=== PATIENT | female | born 1995 | race Caucasian/White ===

== ENCOUNTER → 2023-12-05 | Outpatient (CLI) | payer SELFPAY ==
--- NOTE | 2023-12-05 09:51 | NM_ITS ---
CLINICAL: 28-year-old female with history of right upper quadrant abdominal pain. RADIONUCLIDE HEPATOBILIARY SCINTIGRAPHY COMPARISON: None available FINDINGS: Following the intravenous administration of 5.7 mCi of 99m Tc Mebrofenin, hepatobiliary images reveal: 1. Relatively prompt and homogeneous radiopharmaceutical concentration is noted by a normal sized liver. No parenchymal defects are identified. 2. Gallbladder activity is identified at 15 minutes post radiopharmaceutical administration. 3. Small intestinal tract is observed at 45 minutes following tracer injection. 4. Washout of the radiopharmaceutical by the hepatic parenchyma appears qualitatively normal. NM/Hepatobilliary Imaging IMPRESSION: 1. NORMAL 99m Tc Mebrofenin hepatobiliary imaging examination. A. Visualization of the gallbladder within 60 minutes post radiopharmaceutical administration excludes acute cholecystitis with 97% certitude. (Shawna et al, Nucl Med Ella [facility]a Press pg. 35, 1980). B. Further evaluation of this individual may be undertaken utilizing CCK augmented hepatobiliary scintigraphy if clinically appropriate. (Judi Brock et al, J Nucl Med 32: 1695, 1990). Electronically Signed: Pierre Jung DO at 23:28 EDT ,
== END | disposition home or self-care (01) ==
LOC: NM 09:47
PROVIDERS: PCP Nurse Practitioner Family; Referring Provider Nurse Practitioner Family; Visit Provider Nurse Practitioner Family
DX: R10.11 Right upper quadrant pain (principal)
CPT/HCPCS: 78226; A9537

== ENCOUNTER → 2024-01-11 | Outpatient (CLI) | payer SELFPAY ==
[2024-01-11 10:31] LABS: Absolute Lymphocyte Count 1.54 X10^3/uL (0.83-4.51); Basophil# 0.05 X10^3/uL; Basophil% 0.9 % (0-1); Eosinophils% 3.8 % (0-5); Hematocrit 41.6 % (37-47); Lymphocyte # 1.54 X10^3/ul (0.83-4.51); Lymphocyte % 29.2 % (19-41); Mean Corp Hgb Conc 33.7 g/dL (32-36); Mean Corpuscular Hgb 29.9 pg (27.0-32.0); Mean Corpuscular Volume 88.7 fL (81-99); Mean Platelet Vol. 9.3 fl (6.2-12.0); Monocyte# 0.51 X10^3/uL; Monocyte% 9.7 % (0-10); NRBC Flagged by Analyzer 0 % (0-5); Neutrophil # 2.96 X10^3/uL (2.7-7.7); Platelet Count 277 K/mm3 (150-450); RBC Distribution Width CV 12.2 % (11.6-14.6); RBC Distribution Width SD 39.2 fl (35.1-43.9); Red Blood Count 4.69 M/mm3 (4.2-5.4); White Blood Count 5.3 K/mm3 (4.4-11.0)
[2024-01-11 10:49] LABS: AST(SGOT) 19 U/L (15-37); Alanine Aminotransfer ALT/SGPT 21 U/L (13-56); Albumin, Serum 3.9 g/dL (3.2-5.0); Alkaline Phosphatase 38 U/L (45-117); Anion Gap 3 (5-15); BUN 12 mg/dL (7-18); Calcium,Total 9.3 mg/dL (8.5-10.1); Chloride 107 mmol/L (98-107); EST Glomerular Filtration Rate 70 mL/min (>60); Est Glom Filt Rate - Afr Amer 85 mL/min (>60); Glucose 97 mg/dL (74-106); Potassium 3.9 mmol/L (3.5-5.1); Protein, Total 7.9 g/dL (6.4-8.2); Sodium Level 138 mmol/L (136-145)
== END | disposition home or self-care (01) ==
LOC: PAVLAB 10:17
PROVIDERS: PCP Nurse Practitioner Family; Referring Provider Surgery; Visit Provider Surgery
DX: K82.9 Disease of gallbladder, unspecified (principal)
CPT/HCPCS: 36415; 80053; 85025

== ENCOUNTER → 2024-01-16 | Outpatient (CLI) | payer SELFPAY ==
--- NOTE | 2024-01-16 07:26 | US_ITS ---
EXAM: US ABDOMEN LIMITED, RIGHT UPPER QUADRANT CLINICAL INDICATION: Recurrent right upper quadrant pain TECHNIQUE: Real-time ultrasound of the right upper quadrant with image documentation. COMPARISON: No relevant prior studies available. FINDINGS: LIVER: Normal. There is normal echotexture. No focal hepatic lesion. No intrahepatic biliary ductal dilation. GALLBLADDER: Small stones are present within the gallbladder. No gallbladder wall thickening is demonstrated. No pericholecystic fluid. Negative sonographic Uribe''s sign. COMMON BILE DUCT: Common bile duct measures 4.3 mm in maximum diameter. PANCREAS: Unremarkable as visualized. No focal abnormality is demonstrated in the pancreas. No pancreatic ductal dilatation. RIGHT KIDNEY: Normal. There is no hydronephrosis. No shadowing calculus. No focal lesion or perinephric collection is demonstrated. US/Abdomen Limited IMPRESSION: Cholelithiasis. Electronically Signed: Eric Hanks MD at 8:47 EDT ,
== END | disposition home or self-care (01) ==
LOC: US 07:24
PROVIDERS: PCP Nurse Practitioner Family; Referring Provider Surgery; Visit Provider Surgery
DX: K82.9 Disease of gallbladder, unspecified (principal)
CPT/HCPCS: 76705

== ENCOUNTER 2024-01-31 09:01 | Day surgery (SDC) | payer SELFPAY ==
[2024-01-31] VITALS (11 sets, daily range): BP systolic 106–126; BP diastolic 49–80; PULSE 77–101; RESP 16; TEMP 36.1–37.1; O2SAT 100; BMI 25.0
--- NOTE | 2024-01-31 09:06 | EKG12_ITS ---
Test Reason : pre-op Blood Pressure : / mmHG Vent. Rate : 080 BPM Atrial Rate : 080 BPM P-R Int : 136 ms QRS Dur : 088 ms QT Int : 362 ms P-R-T Axes : 056 073 033 degrees QTc Int : 417 ms Normal sinus rhythm with sinus arrhythmia Normal ECG No previous ECGs available Confirmed by JAKY BROOKS, ANKUR ([id number]), graphics editor MARTA TIJERINA ([id number]) on 01/31/2024 2:16:50 PM Referred By: Tj Parikh Confirmed By:ANKUR STARKEY MD
[2024-01-31] MEDS: Bupiv/Epi 0.25% 30 ML Vial (09:10)
[2024-01-31 09:20] LABS: Internal QC Validated? YES +Cl - CLEAR BKGD; Pregnancy, Urine Negative Negative
--- NOTE | 2024-01-31 09:30 | RAD_ITS ---
STUDY: INTRAOPERATIVE CHOLANGIOGRAM. REASON FOR EXAM: Female, 28 years old. PAIN, LAP RUDY WITH IOC FLUOROSCOPY TIME (if supplied): ( 28.4 seconds ) minutes/seconds. 6.25 mGy. TECHNIQUE: An intraoperative cholangiogram was performed by the surgeon. Imaging was submitted. COMPARISON: None. FINDINGS: The common bile duct is not dilated. No intraluminal filling defect is seen. There is free flow of contrast into the duodenum. The intrahepatic biliary ducts are unremarkable. RAD/Cholangiogram/ O R,Initial IMPRESSION: Unremarkable intraoperative cholangiogram. Electronically Signed: Carl Taylor MD at 15:03 EDT ,
[2024-01-31] MEDS: Lactated Ringers 1,000 ML 15 ML IV ×2 (09:35→16:51)
--- NOTE | 2024-01-31 10:20 | PCM.HP.BLA ---
History and Physical Date of Admission: 01/31/24 Date of Service: 01/11/24 MR#: [id number] Acct: [id number] Name: DAVID BAUMANN Rep #: [id number] : 1995 Provider: Dr. Tj Parikh MD Age/Sex: 28/F Location: [facility] Status: Signed Intake Vital Signs 01/10/2409:42 Height 5 ft 6 in Weight: 147 lb 4 oz BMI 23.8 BP 102/53 L Blood Pressure Location Rt brachial Position Sitting Respiration 18 Pulse 80 Pulse Source Monitor Temp 97.2 F L Temp Source Temporal Pulse Oximetry (%) 99 Oxygen Delivery Method room air Intake Visit Reasons: CHOLECYSITIS Chief Complaint: cholecystitis Is patient in pain?: No Allergies No Known Allergies Allergy (Unverified 01/11/24 09:43) Medications ?Medication ?Instructions ?Recorded ?Confirmed ?Type semaglutide (weight loss) 1 mg/0.5 1 mg subcut Q7D 01/11/24 01/11/24 History mL subcutaneous pen injector PFSH Surgical History (Updated 01/11/24 @ 09:41 by Dannielle Bhat LPN) H/O section Social History (Updated 01/11/24 @ 09:42 by Dannielle Bhat LPN) Smoking Status: Never smoker alcohol intake: never substance use type: does not use HPI HPI HPI: Patient is a 28-year-old female who presents for gallbladder related pain. They are referred for surgical consultation from Dr. Ramsay. Patient shares that her gallbladder troubles began with her with her son in 2019. She notes that during these gallbladder attack she would have upper abdominal pain that radiated to her back along with nausea. She describes these attacks as persisting to this day but less frequently. The attacks seem to occur first thing in the morning or late at night. Initially they were strictly associated with postprandial onset but now they seem to be occurring in [place]. She notes some associated belching and bloating, but confesses that reflux is common in her family and wonders if this is more responsible for these latter symptoms. She herself denies symptoms of reflux or heartburn presently. Patient is reasonably healthy with only diagnosis of a herniated lumbar disc. She confirms her only medication is semaglutide which she started in the last few weeks to control her appetite. She denies any increased nausea with this medication. She has experienced approximately 5 pound weight loss since starting this medication. Previous work-up has included: Right upper quadrant ultrasound performed in 2020 and more recently a HIDA scan performed 12/05/2023 that was normal. ROS General General: No weight change, appetite, fatigue, colon cancer, breast cancer or weakness HEENT HEENT: No difficulty swallowing, eye injury, eye surgery, swollen glands or hoarseness Endo Endocrine: No thyroid disease, diabetes mellitus, thyroid cancer, Hair loss, heat intolerance or cold intolerance Skin Skin: No rash or changing moles Breast Breast: No left breast lump, right breast lump, nipple discharge, breast pain, abnormal mammogram, abnormal US or breast enlargement Musc Musculoskeletal: Yes back problems; No arthritis, rheumatoid arthritis, gout or joint pain Cardio Cardiovascular: No murmur, pacemaker, heart disease, atrial fibrillation, high blood pressure, heart attack, heart stent, palpitations, shortness of breat with exertion or chest pain Psych Psychiatric: No depression, anxiety or hearing voices Resp Respiratory: No shortness of breath, No sleep apnea, No cough, No COPD, No asthma, No emphysema and No wheezing Gastro Gastrointestinal: No abdominal pain, No nausea or vomiting, No diarrhea, No constipation, No blood in stool, No acid reflux, No hemorrhoids, No ulcers, Yes gallbladder problem and No black,tarry stools Dickson Hematologic: No blood thinners, No blood disorders, No bleeding, No anemia and No blood clots Neuro Neurologic: No numbness, No tingling and No weakness Exam Const General: cooperative, healthy appearing and comfortable Orientation: alert, awake and oriented x3 Resp Effort & Inspection: normal respiratory effort GI Other: Mild abdominal striae present in lower abdominal wall, normal habitus, no visible herniation, nondistended, soft, mild tenderness to palpation of the right upper quadrant and epigastric areas. Negative Uribe sign. Assessment and Plan Assessment and Plan (1) Symptomatic cholelithiasis: Status: Chronic Comment: Patient is a 28-year-old female who presents for consideration of cholecystectomy related to a diagnosis of symptomatic cholelithiasis. Her cholelithiasis was first identified during her in 2019 and she reports ongoing gallbladder attacks that have occurred with a regular frequency. Although there are some parts of her description that are atypical for gallbladder?related symptoms (specifically including details such as belching or bloating), her overall descriptions are suggestive of a gallbladder source. Further, her exam is more consistent with a gallbladder source than upper GI source. Still, I have cautioned patient that it is certainly possible her symptoms derived from multiple sources and that a cholecystectomy may not be fully curative. Patient was initially sent out of concern for possible cholecystitis but this does not appear to be patient's diagnosis based on her exam and negative HIDA imaging. Upon patient's declaration that she still wishes to proceed with surgery if recommended, I added that I would like to see her undergo updated laboratory and ultrasound testing. She is in agreement and we will tentatively plan for surgery in early January. She is advised of the postoperative wound care expectations and activity restrictions. Plan: ? Update CMP, CBC, and right upper quadrant ultrasound ? Plan for outpatient laparoscopic cholecystectomy with intraoperative cholangiography early January 2024 I have examined the patient and the H&P has been reviewed. There are no clinical changes since date of exam. I did review with patient that both her ultrasound and laboratories came back reassuring for only finding of cholelithiasis and no evidence of biliary tract obstruction. I reviewed with her the details of the procedure as well as postprocedure expectations. All questions were taken from her and her spouse. Consents were confirmed and will now proceed to the operating room for planned procedure was discussed in greater detail above.
--- NOTE | 2024-01-31 10:30 | GALL_PTH ---
PATIENT: DAVID BAUMANN [place] [facility] [place][id number] AGE/SX: 28/F ROOM: RE01/31/[address]: Dr. Tj Parikh MD : 1995 BED: DIS: 01/31/2024 SPEC #: [id number] RECD: 01/31/24 14:17 STATUS: RAISSA MYNOR #: [id number] TURNER: 01/31/24 10:[address]: Tj Parikh DEPT: SURGICAL PATHOLOGY RECD BY: Martha Briscoe ENTERED: 02/01/24 10:55 SP TYPE: GREG AGARWAL DR: Bianca Grier, STRATIGRAPHER-C Tissues: Gallbladder, NOS Procedures: Surgery Specimen Level III HEADER OPERATION: Laparoscopic, cholecystectomy with IOC PRE-OP DIAGNOSIS: Symptomatic cholelithiasis TISSUE SUBMITTED: Gallbladder MICROSCOPIC DIAGNOSIS Gallbladder, cholecystectomy: Cholesterolosis, chronic cholecystitis and cholelithiasis. NICOLASA/ 02/02/2024 MICROSCOPIC DESCRIPTION Slides are reviewed. GROSS DESCRIPTION Received is one container labeled with the patient's name and designated gallbladder. The specimen consists of a gallbladder measuring 5.0 cm in length and up to 2.5 cm in diameter. The external surface is pink-scott, smooth and glistening for the most part. Focally it is granular, hemorrhagic and contains cautery artifact. The gallbladder contains green-yellow mucoid bile and two greenish-yellow mulberry stones measuring in aggregate 0.5 cm in greatest dimension. The mucosa is bile-stained and without any mass lesions. The gallbladder wall measures up to 0.2 cm in thickness. A section of the gallbladder wall also reveals a scott-yellow cystic area filled with yellowish-brown material measuring 0.6cm in greatest dimension. Ems Coordinator sections from the gallbladder and the cystic duct are submitted in two cassettes. 1- Usual section for gallbladder, 2- Cystic area at the fundus, entirely submitted. / SJ: 02/01/2024 TC:3 CPT: 45544
[2024-01-31] MEDS: Cefazolin 2 GM in 0.9% Normal Saline (100mL Bag) 100 ML IV (10:33)
--- NOTE | 2024-01-31 11:50 | PCM.OPRPT ---
Report of Operation Date of Procedure: 01/31/24 Pre-Operative Diagnosis: Symptomatic cholelithiasis Post-Operative Diagnosis: Symptomatic cholelithiasis with evidence of mild chronic cholecystitis Surgery/Procedure Performed:: Laparoscopic cholecystectomy with intraoperative cholangiogram Description of Surgical Findings:: ? Mineral visceral fat allowing for identification of the common bile duct and right hepatic artery in addition to the typical anatomy including the cystic duct and cystic artery ? Cholangiogram showing antegrade filling of the cystic duct and common bile duct through the ampulla Vater without evidence of filling defect Surgeon: Tj Parikh superintendent production: Misha Jacob Type of Anesthesia: General/Supplemental Anesthesiologist: Charles Meza Specimen's removed: Gallbladder Estimated Blood Loss (mL): 5 Description of Procedure: After proper identification in the preoperative holding area the patient was brought to the operating room where she was positioned supine on the operating room table. Preoperatively SCDs were placed and antibiotics were administered. General anesthesia was then induced. Patient's abdomen was prepped and draped in usual sterile fashion. A formal timeout was conducted to confirm both patient and the procedure. Procedure was begun with a supraumbilical incision which was extended deeply down to the level of the fascia. The fascia was elevated and incised, as well as the peritoneum. A finger sweep was performed to ensure there were no underlying adhesions and a 12 mm balloon trocar was inserted. Pneumoperitoneum was established at 15 mmHg. Three additional trocars (all 5 mm) were placed in the epigastrium and in the right upper quadrant. Inspection of the peritoneum revealed no inadvertent injury to the viscera below. The gallbladder was visualized with a degree of mild chronic inflammation. The gallbladder fundus was then grasped and elevated cephalad. Then, using careful dissection the peritoneum was opened and the structures of the hepatocystic triangle were delineated. Additionally, likely given the minimal amount of visceral peritoneal fat I was able to visualize the confluence of the cystic duct with the common hepatic duct forming a common bile duct and the takeoff of the cystic artery from the right hepatic artery. Once the critical view of safety was obtained, the cystic duct was singly clipped and partially divided with a ductotomy. The proximal duct was milked of any debris until there was backflow of bile. Using an Romero Chantale clamp, a cholangiocatheter was fed into the proximal segment of the cystic duct and clamped into place. Under fluoroscopy a cholangiogram was then obtained showing a standard length cystic duct flowing into a common bile duct with unobstructed antegrade flow of contrast into the duodenum. There was also retrograde flow through the common hepatic duct into the right and left hepatic ducts. Satisfied with this result, the cholangiocatheter was withdrawn and the proximal cystic duct was sealed with clips and the cystic duct was completely transected. The same process was used for the cystic artery. The gallbladder was then removed from the gallbladder fossa with the use of electrocautery. Selective electrocautery was used to obtain hemostasis in the gallbladder fossa. The gallbladder was placed in an Endo Catch bag and removed from the peritoneum. Morison's pouch was irrigated and the effluent was suctioned free of the peritoneum. Hemostasis was again confirmed. Pneumoperitoneum was evacuated and the fascia of the 12 mm port sites was closed with #1Vicryl in a [id number] fashion. A total of [] mL of anesthetic was injected at the port sites for postoperative pain control. The skin of each port site was then closed in subcuticular fashion using 4-0 Monocryl. Steri-Strips and bandages were applied as dressings. Patient tolerated the procedure well without any apparent complications. On emergence from their anesthetic the patient was taken to PACU for ongoing recovery. Grafts/Implants Used: None Complications None Admit VTE Documentation VTE Mechan Device Prophylaxis: SCD's Procedures Digestive 40xxx-49xxx: 42638 Laparo cholecystectomy/graph
--- NOTE | 2024-01-31 11:56 | DCINST_ITS ---
Discharge Instructions Diet Discharge Diet: No restrictions Activity Discharge Activity: May Not Drive (No driving while using narcotic pain medication) and May Shower (Postoperative day 1) May shower in (days): 2 Ice area for (Minutes): 20 Lifting Restrictions: No lifting greater than 15 pounds for 2 weeks after surgery Dressing / Incision Call your doctor if your incision/area has: Continuous Slow Oozing, Increased Pain/ Swelling, Increased Redness, Foul Smelling Discharge and Swelling at the incision site Call your doctor if you observe: Fever of 101 or Higher Remove Dressing in: 2 days (Please leave Steri-Strips intact until they fall off spontaneously or are taken off at your follow-up visit) Cleanse incision/area with: Soap & Water Follow Up Care Please Follow Up With: Tj Parikh MD When: 7-10days postop Test Results: Test results from this visit will be discussed in further detail at your follow- up appointment, if applicable. Discharge Plan Admission Primary Reason for Your Visit: Gallbladder removal Attending Provider: Tj Parikh Primary Care Provider: Bianca Grier NP Instructions Print Language: Honduran Discharge Orders/Prescriptions Prescriptions: New oxycodone 5 mg tablet 5 mg PO Q6H PRN (Reason: pain) 3 Days Qty: 14 0RF Continued semaglutide (weight loss) 1 mg/0.5 mL pen injector 1 mg subcut Q7D Referrals / Follow Up: Bianca Grier NP, [facility] [employer] [Primary Care Provider] - Disposition Disposition (needs filled in before D/C Order can be placed): Home, Self Care
[2024-01-31] MEDS: Acetaminophen 325 MG Tablet 650 MG PO (16:41)
== END 2024-01-31 17:38 | disposition home or self-care (01) ==
LOC: SDC 09:05 → AC 09:05
PROVIDERS: Anesthesiology; PCP Nurse Practitioner Family; Referring Provider Surgery; Visit Provider Surgery
PROC: (CPT 47610; principal; 2024-01-31 10:10)
DX: K80.10 Calculus of gallbladder with chronic cholecystitis without obstruction (principal); K21.9 Gastro-esophageal reflux disease without esophagitis
CPT/HCPCS: 47563; 00790; 74300; 76000; 81025; 88304; 93005; J7120; J2405

== ENCOUNTER 2025-03-02 12:14 | Inpatient (IN) | payer SELFPAY ==
[2025-03-02] VITALS (16 sets, daily range): BP systolic 102–130; BP diastolic 51–80; PULSE 74–95; RESP 16–18; TEMP 35.8–37.4; O2SAT 99–100; BMI 34.9
[2025-03-02] MEDS: Lactated Ringers 1,000 ML 999 ML IV (12:55)
[2025-03-02 13:15] LABS: Hematocrit 37.0 % (37-47); Hemoglobin 12.8 g/dL (12.0-15.0); Immature Granulocytes Count 0.090 X10^3/uL (0.0-0.0); Mean Corp Hgb Conc 34.6 g/dL (32-36); Mean Corpuscular Volume 88.7 fL (81-99); Mean Platelet Vol. 9.4 fl (6.2-12.0); NRBC Flagged by Analyzer 0 % (0-5); Platelet Count 204 K/mm3 (150-450); RBC Distribution Width CV 13.5 % (11.6-14.6); RBC Distribution Width SD 44.1 fl (35.1-43.9); Red Blood Count 4.17 M/mm3 (4.2-5.4); White Blood Count 14.6 K/mm3 (4.4-11.0)
[2025-03-02] MEDS: Cefazolin 2 GM in 0.9% Normal Saline (100mL Bag) 100 ML IV (13:51)
[2025-03-02 14:10] LABS: Syphilis Antibodies Nonreactive (Nonreactive)
[2025-03-02] MEDS: Oxytocin 15 Units/NS 250ml 15 UNITS/250 ML IV.SOLN 83 UNITS IV (15:30)
[2025-03-02] MEDS: Ketorolac 30 MG/ML Syringe IV ×2 (16:03→22:01)
[2025-03-02] MEDS: Lactated Ringers 1,000 ML 100 ML IV (17:00)
[2025-03-03 00:32] VITALS: BP 111/62; PULSE 74; RESP 16; TEMP 36.4; O2SAT 99
[2025-03-03] MEDS: Ketorolac 30 MG/ML Syringe IV ×2 (04:29→09:45)
[2025-03-03 04:58] VITALS: BP 97/49; PULSE 80; RESP 16; TEMP 36.4; O2SAT 100
[2025-03-03 08:03] VITALS: BP 93/51; PULSE 70; RESP 16; TEMP 36.8
[2025-03-03 08:03] LABS: Hematocrit 28.8 % (37-47); Hemoglobin 9.7 g/dL (12.0-15.0); Mean Corp Hgb Conc 33.7 g/dL (32-36); Mean Corpuscular Volume 91.1 fL (81-99); Mean Platelet Vol. 9.0 fl (6.2-12.0); Platelet Count 179 K/mm3 (150-450); RBC Distribution Width CV 13.5 % (11.6-14.6); RBC Distribution Width SD 44.2 fl (35.1-43.9); Red Blood Count 3.16 M/mm3 (4.2-5.4); White Blood Count 14.4 K/mm3 (4.4-11.0)
[2025-03-03] MEDS: 0.9% Saline Lock 10 ML Syringe IV (09:44)
[2025-03-03] MEDS: Senna/Docusate Sodium 1 Tablet PO (09:45)
[2025-03-03 12:00] VITALS: BP 94/60; PULSE 70; RESP 16; TEMP 36.4
[2025-03-03 16:00] VITALS: BP 97/52; PULSE 82; RESP 16; TEMP 36.3
== END 2025-03-03 18:00 | disposition home or self-care (01) | DRG 787 ==
LOC: WPOUT 12:31 → WP 12:31
PROVIDERS: Admitting Provider Obstetrics & Gynecology; PCP Nurse Practitioner Family; Referring Provider Obstetrics & Gynecology; Visit Provider Obstetrics & Gynecology
DX: O34.211 Maternal care for low transverse scar from previous cesarean delivery (principal); D62 Acute posthemorrhagic anemia; O99.214 Obesity complicating childbirth; O90.81 Anemia of the puerperium; Z37.0 Single live birth; Z3A.38 38 weeks gestation of pregnancy
CPT/HCPCS: 59025; 59050; 85025; 85027; 86780; 86850; 86900; 86901; 99221; A4216; G0378; J2405